=== PATIENT | female | born 1960 | race Caucasian/White ===

== ENCOUNTER 2020-08-20 10:32 | Day surgery (SDC) | payer OTHER ==
[2020-08-19 08:20] LABS: COVID AG,FIA SOURCE NASOPHARYNGEAL
[~2020-08-20] VITALS: Ht 152.4 cm; Wt 218.0 kg
[~2020-08-20 10:32] MED LIST: LEVO50 PO
[2020-08-20] MEDS ORDERED: LIDOCAINE/PF 2% 5 ML SYRINGE IVP ONE (10:33)
[2020-08-20] MEDS ORDERED: PROPOFOL 1% 20 ML VIAL IVP ONE (10:33)
[2020-08-20] MEDS ORDERED: SODIUM CHLORIDE 0.9% 1,000 ML ONE (10:40)
[2020-08-20] MEDS ORDERED: SODIUM CHLORIDE 0.9% 1,000 ML IV ONE (12:00)
== END 2020-08-20 14:20 | disposition home or self-care (01) ==
LOC: SURGERY 10:32
PROVIDERS: ATTEND Student in an Organized Health Care Education/Training Program
DX: Z12.11 Encounter for screening for malignant neoplasm of colon (principal); D12.3 Benign neoplasm of transverse colon; D12.4 Benign neoplasm of descending colon; D12.8 Benign neoplasm of rectum; K57.30 Diverticulosis of large intestine without perforation or abscess without bleeding; K64.8 Other hemorrhoids; Z90.710 Acquired absence of both cervix and uterus; I10 Essential (primary) hypertension; E03.9 Hypothyroidism, unspecified; Z85.89 Personal history of malignant neoplasm of other organs and systems
CPT/HCPCS: 45380; 45385; 87426; 88305; C9803; J2704; J3490; J7030

== ENCOUNTER 2020-09-17 10:01 | Day surgery (SDC) | payer OTHER ==
[2020-09-15 14:25] LABS: COVID AG,FIA SOURCE NASOPHARYNGEAL
[~2020-09-17] VITALS: Ht 152.4 cm; Wt 100.0 kg
[~2020-09-17 10:01] MED LIST changes: +SODIUM CHLORIDE 0.9% 1,000 ML IV ONE
[2020-09-17] MEDS ORDERED: PROPOFOL 1% 20 ML VIAL IVP ONE (10:02)
[2020-09-17] MEDS ORDERED: LIDOCAINE/PF 2% 5 ML VIAL IM ONE (10:02)
[2020-09-17] MEDS ORDERED: SODIUM CHLORIDE 0.9% 1,000 ML ONE (10:07)
== END 2020-09-17 14:15 | disposition home or self-care (01) ==
LOC: SURGERY 10:01
PROVIDERS: ATTEND Student in an Organized Health Care Education/Training Program
DX: K31.89 Other diseases of stomach and duodenum (principal); K44.9 Diaphragmatic hernia without obstruction or gangrene; K29.50 Unspecified chronic gastritis without bleeding; Z90.710 Acquired absence of both cervix and uterus; Z85.89 Personal history of malignant neoplasm of other organs and systems
CPT/HCPCS: 43239; 87426; 88305; 88312; 88313; C9803; J2704; J3490; J7030